=== PATIENT | female | born 1970 | race Caucasian/White ===

== ENCOUNTER 2019-12-10 22:18 | Emergency (ER) | payer MEDICAID ==
[~2019-12-10] VITALS: Ht 170.2 cm; Wt 86.5 kg
[2019-12-10 22:20] VITALS: BP 133/73
[2019-12-10 23:09] LABS: BASOPHILS # (AUTO) 0.02 x10^3/uL (0-0.1); BASOPHILS % (AUTO) 0 % (0-1); EOSINOPHILS # (AUTO) 0.17 x10^3/uL (0-0.4); EOSINOPHILS % (AUTO) 2 % (1-7); LYMPHOCYTES # (AUTO) 2.55 x10^3/uL (1-3.4); LYMPHOCYTES % (AUTO) 25 % (22-44); MD NO; MEAN CORPUSCULAR HEMOGLOBIN 28.9 pg (27.0-34.8); MEAN CORPUSCULAR HGB CONC 33.1 g/dL (32.4-35.8); MEAN PLATELET VOLUME 7.2 fL (7.4-10.4); MONOCYTES # (AUTO) 0.29 x10^3/uL (0.2-0.8); MONOCYTES % (AUTO) 3 % (2-9); NEUTROPHILS # (AUTO) 7.11 x10^3/uL (1.8-6.8); NEUTROPHILS % (AUTO) 70 % (42-75); PLATELET COUNT 388 x10^3/uL (130-400); RED BLOOD COUNT 4.89 x10^6/uL (3.82-5.3); RED CELL DISTRIBUTION WIDTH 15.2 % (9.6-15.2)
[2019-12-10 23:19] LABS: ALANINE AMINOTRANSFERASE 56 U/L (12-78); ALBUMIN 3.7 g/dL (3.4-5.0); ANION GAP 7 mmol/L (5-15); CALCIUM 9.7 mg/dL (8.5-10.1); CHLORIDE 105 mmol/L (98-107); CREATININE 0.93 mg/dL (0.55-1.02)
[2019-12-10 23:21] LABS: ALKALINE PHOSPHATASE 189 U/L (45-117); BILIRUBIN,TOTAL 0.2 mg/dL (0.2-1.0); TOTAL PROTEIN 8.2 g/dL (6.4-8.2)
[2019-12-10 23:28] LABS: MICROSCOPIC INDICATED
[2019-12-11] MEDS ORDERED: OMNIPAQUE 350 MG/ML, 100ML BOTTLE ONE (00:09)
== END 2019-12-11 00:55 | disposition home or self-care (01) ==
LOC: ED 23:39
DX: R31.0 Gross hematuria (principal); D35.02 Benign neoplasm of left adrenal gland; M54.5 Low back pain; Z90.710 Acquired absence of both cervix and uterus; F17.200 Nicotine dependence, unspecified, uncomplicated
CPT/HCPCS: 36415; 74177; 80053; 81001; 85025; 87086; 99285; Q9967; 99284

== ENCOUNTER → 2020-03-22 | Outpatient (CLI) | payer MEDICAID ==
[~2020-03-22] MED LIST: GADOTERATE 10 MMOL/20 ML VIAL ONE
== END | disposition home or self-care (01) ==
LOC: GALN 03-16 12:57 → EDSTATUS 03-16 13:30 → SMMGROBB 03-17 09:54 → RAD 12:46
PROVIDERS: ATTEND Urology
DX: K76.0 Fatty (change of) liver, not elsewhere classified (principal); D35.01 Benign neoplasm of right adrenal gland; E27.8 Other specified disorders of adrenal gland
CPT/HCPCS: 74183; A9575

== ENCOUNTER 2020-06-13 23:14 | Emergency (ER) | payer MEDICAID ==
[~2020-06-13] VITALS: Ht 170.2 cm; Wt 86.4 kg
[2020-06-13 23:18] VITALS: BP 118/66
--- NOTE | 2020-06-13 23:34 | NUR ---
PT BACK FROM XRAY
== END 2020-06-14 01:32 | disposition home or self-care (01) ==
LOC: ED 06-14 00:30
DX: S62.115A Nondisplaced fracture of triquetrum [cuneiform] bone, left wrist, initial encounter for closed fracture (principal); M25.532 Pain in left wrist; M79.89 Other specified soft tissue disorders; X58.XXXA Exposure to other specified factors, initial encounter; Y93.89 Activity, other specified; Y92.89 Other specified places as the place of occurrence of the external cause; Y99.8 Other external cause status
CPT/HCPCS: 29125; 99284

== ENCOUNTER 2020-08-27 00:55 | Emergency (ER) | payer MEDICAID ==
[~2020-08-27] VITALS: Ht 170.2 cm; Wt 88.5 kg
[2020-08-27 01:00] VITALS: BP 123/74
--- NOTE | 2020-08-27 02:10 | NUR ---
MARI MONTIEL CALLED FOR PATIENT. PATIENT NOT IN LOBBY. 1ST ATTEMPT.
--- NOTE | 2020-08-27 02:31 | NUR ---
CALLED FOR PATIENT. PATIENT NOT IN LOBBY AT THIS TIME. 2ND ATTEMPT.
--- NOTE | 2020-08-27 02:44 | NUR ---
CALLED FOR PATIENT. PATIENT NOT IN LOBBY AT THIS TIME. 3RD ATTEMPT.
== END 2020-08-27 02:49 | disposition left against medical advice (07) ==
LOC: ED 02:43
DX: M79.671 Pain in right foot (principal); Z53.21 Procedure and treatment not carried out due to patient leaving prior to being seen by health care provider

== ENCOUNTER 2020-08-30 10:17 | Emergency (ER) | payer MEDICAID ==
[~2020-08-30] VITALS: Ht 170.2 cm; Wt 88.5 kg
--- NOTE | 2020-08-30 10:38 | NUR ---
PT AMBULATED TO ROOM, CHANGED INTO GOWN. MONITORS IN PLACE. CALL LIGHT WITHIN REACH
--- NOTE | 2020-08-30 10:43 | NUR ---
PT TO X-RAY
[2020-08-30 11:10] VITALS: BP 106/42
--- NOTE | 2020-08-30 11:11 | NUR ---
PT SITTING ON GURNEY CALMLY, NADN/VSS. NO NEEDS AT THIS TIME. CALL LIGHT WITHIN REACH
[2020-08-30] MEDS ORDERED: KETOROLAC 30 MG/1 ML ONE (11:29)
[2020-08-30] MEDS ORDERED: KETOROLAC 30 MG/1 ML IM ONE (11:30)
--- NOTE | 2020-08-30 11:42 | NUR ---
Patient given discharge instructions and they have confirmed that they understand the instructions. Patient ambulatory with steady gait.
== END 2020-08-30 11:48 | disposition home or self-care (01) ==
LOC: ED 11:46
DX: S93.401A Sprain of unspecified ligament of right ankle, initial encounter (principal); M79.89 Other specified soft tissue disorders; E11.9 Type 2 diabetes mellitus without complications; Z90.710 Acquired absence of both cervix and uterus; X58.XXXA Exposure to other specified factors, initial encounter; Y93.89 Activity, other specified; Y92.89 Other specified places as the place of occurrence of the external cause; Y99.8 Other external cause status
CPT/HCPCS: 73610; 73630; 96372; 99284; J1885

== ENCOUNTER 2020-12-24 12:50 | Emergency (ER) | payer MEDICAID ==
[~2020-12-24] VITALS: Ht 170.2 cm; Wt 85.5 kg
--- NOTE | 2020-12-24 14:26 | NUR ---
RECEIVED REPORT FROM PACHECO STALLINGS. ASSUMING CARE AT THIS TIME.
[2020-12-24] MEDS ORDERED: SODIUM CHLORIDE 0.9% 1,000ML IVBOLUS ONE (14:30)
[2020-12-24] MEDS ORDERED: HYDROmorphone 1 MG/ML, 1ML INJ IVPush PRN (14:30)
[2020-12-24] MEDS ORDERED: SODIUM CHLORIDE FLUSH 10ML SYR IVF ONE (14:30)
[2020-12-24 14:58] LABS: BASOPHILS % (AUTO) 1 % (0-1); EOSINOPHILS % (AUTO) 1 % (1-7); LYMPHOCYTES % (AUTO) 22 % (22-44); MEAN CORPUSCULAR HEMOGLOBIN 28.7 pg (27.0-34.8); MEAN PLATELET VOLUME 6.7 fL (7.4-10.4); MONOCYTES % (AUTO) 8 % (2-9); NEUTROPHILS % (AUTO) 68 % (42-75); PLATELET COUNT 341 x10^3/uL (130-400); RED BLOOD COUNT 4.56 x10^6/uL (3.82-5.3); RED CELL DISTRIBUTION WIDTH 15.1 % (9.6-15.2)
[2020-12-24 15:02] LABS: ALANINE AMINOTRANSFERASE 49 U/L (12-78); ALBUMIN 3.2 g/dL (3.4-5.0); ANION GAP 5 mmol/L (5-15); CALCIUM 9.3 mg/dL (8.5-10.1); CHLORIDE 110 mmol/L (98-107); CREATININE 0.74 mg/dL (0.55-1.02)
[2020-12-24 15:04] LABS: ALKALINE PHOSPHATASE 150 U/L (45-117); BILIRUBIN,TOTAL 0.4 mg/dL (0.2-1.0)
[2020-12-24] MEDS ORDERED: HYDROmorphone 2 MG/ML, 1ML ONE (15:17)
--- NOTE | 2020-12-24 15:22 | NUR ---
UNABLE TO PLACE PIV. ERMD NOTIFIED. V/O FOR DILAUDID 1MG IM. ORDER INPUT AND CARRIED OUT. NO NEED FOR PIV AT THIS TIME. US AT BEDSIDE.
[2020-12-24] MEDS ORDERED: HYDROmorphone 1 MG/ML, 1ML INJ IM ONE (15:30)
[2020-12-24] MEDS ORDERED: CEFAZOLIN 1,000 MG IM ONE (16:00)
[2020-12-24] MEDS ORDERED: CEFAZOLIN 1,000 MG ONE (16:11)
--- NOTE | 2020-12-24 16:17 | NUR ---
ABX ADMIN PER JUL.
--- NOTE | 2020-12-24 16:19 | NUR ---
ERMD HAS BEEN AT BEDSIDE TO UPDATE PT ON POC.
--- NOTE | 2020-12-24 17:36 | NUR ---
ERMD AT BEDSIDE TO UPDATE PT ON POC.
[2020-12-24 17:55] VITALS: BP 126/65
== END 2020-12-24 17:57 | disposition home or self-care (01) ==
LOC: ED 17:00
DX: N64.4 Mastodynia (principal); E11.9 Type 2 diabetes mellitus without complications; M79.632 Pain in left forearm
CPT/HCPCS: 36415; 76642; 80053; 83605; 84145; 85025; 87040; 93971; 96372; 99285; J0690; J1170